=== PATIENT | female | born 1955 | race Caucasian/White ===

== ENCOUNTER 2017-02-13 07:00 | Inpatient (IN) ==
--- NOTE | 2017-02-22 10:48 | EKG Report ---
Test Performed on : 02/22/2017 10:40:37 AM Test Reason : PAT Blood Pressure : / mmHG Vent. Rate : 077 BPM Atrial Rate : 077 BPM P-R Int : 156 ms QRS Dur : 082 ms QT Int : 406 ms P-R-T Axes : 066 029 035 degrees QTc Int : 459 ms Normal sinus rhythm. Normal ECG When compared with ECG of 30-OCT-2016 07:29, Nonspecific T wave abnormality, improved in Inferior leads Nonspecific T wave abnormality no longer evident in Anterolateral leads Confirmed by Frantz JONES, Guru Davenport ([id number]) on 02/24/2017 9:12:41 AM
[2017-02-22 10:55] LABS: MANUAL DIFF NEEDED? NO
[2017-02-22 11:21] LABS: BASO% 0.3 % (0.0-0.8); EOS# 0.19 X1000 (0.0-0.7); EOS% 2.5 % (0.0-10.0); HEMATOCRIT 39.5 % (37.0-47.0); HEMOGLOBIN 12.3 g/dL (12.0-16.0); LYMPH# 2.44 X1000 (1.2-3.4); LYMPH% 32.4 % (20.5-51.1); MCH 26.6 PG (27-31); MCHC 31.1 g/dL (33-37); MCV 85.3 FL (81-99); MPV 9.6 FL (7.4-10.4); NEUT% 56.8 % (42.2-75.2); PLT 325 X1000 (130-400); RBC 4.63 XMIL (4.2-5.4)
[2017-02-22 11:41] LABS: AGAP 10; BUN 10 mg/dL (8-22); CALCIUM 9.2 mg/dL (8.8-10.2); CHLORIDE 102 mmol/L (98-107); COSMO 272; POTASSIUM 4.5 mmol/L (3.5-5.1); SODIUM 137 mmol/L (136-145); TCO2 25 mmol/L (25-35)
[2017-02-27] MEDS ORDERED: PEPCID ONE (11:04)
[2017-02-27] MEDS ORDERED: ENTEREG ONE (11:04)
[2017-02-27] MEDS ORDERED: REGLAN ONE (11:04)
[2017-02-27] MEDS ORDERED: LR 1,000 ML ONE (11:05)
[2017-02-27] MEDS ORDERED: INVANZ 1 GM/NS 0 GM/0 ML IVPB ONE (11:05)
[2017-02-27] MEDS ORDERED: INVANZ 1 GM/NS 1 GM/50 ML IVPB ONE (11:13)
[2017-02-27 13:37] LABS: URINE MICRO REVIEW NEEDED? NO; URINE SOURCE CATH
[2017-02-27 13:41] LABS: BILIRUBIN URINE NEGATIVE (NEGATIVE); BLOOD URINE NEGATIVE (NEGATIVE); COLOR YELLOW; GLUCOSE URINE NEGATIVE (NEGATIVE); LEUKOCYTES URINE NEGATIVE (NEGATIVE); NITRITE URINE NEGATIVE (NEGATIVE); PH URINE 7.5; PROTEIN URINE NEGATIVE (NEGATIVE); SP GRAVITY URINE 1.016; TURBIDITY URINE CLEAR (CLEAR); UROBILINOGEN URINE NORMAL (NORMAL)
[2017-02-27 13:42] LABS: UR EPITHELIAL CELLS <10 /HPF (<10); URINE BACTERIA NEGATIVE /HPF; URINE RBC <10 /HPF (<10); URINE WBC <10 /HPF (<10)
[2017-02-27] MEDS ORDERED: FENTANYL ONE (15:20)
[2017-02-27] MEDS ORDERED: DIPRIVAN 1% ONE (15:20)
[2017-02-27] MEDS: MORPHINE ONE ×4 (15:28→15:55)
[2017-02-27] MEDS ORDERED: NORCURON ONE (15:36)
[2017-02-27] MEDS ORDERED: ZOFRAN ONE ×2 (15:36→16:17)
[2017-02-27] MEDS ORDERED: XYLOCAINE-MPF 2% ONE (15:36)
[2017-02-27] MEDS ORDERED: QUELICIN (DOSE) ONE (15:37)
[2017-02-27] MEDS ORDERED: LR 2,000 ML ONE (15:37)
[2017-02-27] MEDS ORDERED: NS 1,000 ML ONE (15:45)
[2017-02-27] MEDS: NS 1,000 ML IV SCH (19:45)
[2017-02-27] MEDS: OFIRMEV 1000 MG/ISOTONIC SOLN 1,000 MG/100 ML BOTTLE IV SCH (19:45)
[2017-02-27] MEDS: PERIDEX MT SCH (22:32)
[2017-02-27] MEDS: LOVENOX SUBQ SCH (22:32)
[2017-02-28] MEDS: OFIRMEV 1000 MG/ISOTONIC SOLN 1,000 MG/100 ML BOTTLE IV SCH ×4 (00:31→18:42)
[2017-02-28] MEDS: ZOFRAN IV PRN ×3 (00:36→17:42)
--- NOTE | 2017-02-28 02:17 | OPERATIVE NOTE ---
PROCEDURE DATE: 02/27/2017 PROCEDURE PERFORMED: Closure of end colostomy. SURGEON: Flex Mauricio MD. PHYSICIAN ASSISTANT CERTIFIED: MARIANO Contreras. PREOPERATIVE DIAGNOSIS: History of sigmoid resection, with the construction of an end colostomy and Juan David's pouch. POSTOPERATIVE DIAGNOSIS: History of sigmoid resection, with the construction of an end colostomy and Juan David's pouch. INDICATION: A 61-year-old who is post resection of the sigmoid for a perforated diverticulitis. She had an end-colostomy constructed at that time. She now presents for reapproximation and reconstruction of her sigmoid colon. DESCRIPTION OF PROCEDURE: Satisfactory general endotracheal anesthesia was achieved. A 0 Prolene stitch was placed as a pursestring in the stoma to close it. We then prepped and draped the abdomen in sterile fashion. We made a midline incision through the old scar. We went through the midline fascia, removing the old #2 Prolene stitches. We took down the adhesions to the anterior abdominal wall. We then dissected around the colostomy as it entered the abdominal wall. After cleaning it off, we then amputated it with a LELO 80 blue cartridge. We placed the patient in Trendelenburg. A Bookwalter retractor was placed. We divided the adhesions and exposed the Juan David's stump. The proximal bowel came down to the Juan David's satisfactorily, without undue tension. We cleaned off the end of the bowel on each end, and then constructed the end-to-end anastomosis using 3-0 silks in a seromuscular fashion. On the posterior layer, we then amputated the staple lines, spread the lumen of the bowel with Kellys on both sides to stretch them, and used a 3-0 Polysorb running locking stitch posteriorly, changed to a Lorene stitch anteriorly, and then 3-0 silks in a Lembert fashion. Completed the 2 layer end-to-end approximation. We changed gloves at this point and rid ourselves of contaminated instruments. We irrigated out the pelvis. We then took the patient out of Trendelenburg, removed our laps. This took whatever tension was present off the anastomosis, and it was under no tension whatsoever. Hemostasis was satisfactory. We returned the small bowel to the pelvis, covered it with the omentum. We then closed the peritoneum with a 2-0 chromic running. The fascia was closed with running #2 Prolene running. We irrigated the subcutaneous tissue, and skin was closed with elmer. We then covered the staple line, and incised the mucocutaneous junction circumferentially of the stoma, and then dissected the stoma out of the abdominal wall. We closed the fascia with 0 Surgilon simple or [id number] stitches. We then irrigated the subcutaneous tissue of the stoma site, and then closed the skin transversely with elmer. Sterile dressings were applied. She tolerated it well, was sent to the recovery room in satisfactory condition. cc: Flex Mauricio MD
[2017-02-28] MEDS: NS 1,000 ML IV SCH ×2 (02:40→12:30)
[2017-02-28 06:06] LABS: HEMATOCRIT 33.9 % (37.0-47.0); HEMOGLOBIN 10.5 g/dL (12.0-16.0); MCH 27.3 PG (27-31); MCV 88.1 FL (81-99); MPV 9.7 FL (7.4-10.4); RBC 3.85 XMIL (4.2-5.4)
[2017-02-28 06:51] LABS: AGAP 11; BUN 12 mg/dL (8-22); CALCIUM 7.9 mg/dL (8.8-10.2); CHLORIDE 102 mmol/L (98-107); COSMO 275; POTASSIUM 3.9 mmol/L (3.5-5.1); SODIUM 138 mmol/L (136-145); TCO2 25 mmol/L (25-35)
[2017-02-28] MEDS ORDERED: ENTEREG PO SCH (09:00)
[2017-02-28] MEDS: PRILOSEC PO SCH (10:01)
[2017-02-28] MEDS: ENTEREG PO SCH ×2 (10:01→20:23)
[2017-02-28] MEDS: PERIDEX MT SCH ×2 (10:01→20:23)
[2017-02-28] MEDS: DILAUDID IV PRN ×2 (10:08→17:42)
[2017-02-28] MEDS: LOVENOX SUBQ SCH (20:23)
[2017-03-01] MEDS: OFIRMEV 1000 MG/ISOTONIC SOLN 1,000 MG/100 ML BOTTLE IV SCH ×5 (00:22→23:53)
[2017-03-01] MEDS: NS 1,000 ML IV SCH ×3 (00:22→11:35)
[2017-03-01] MEDS: ZOFRAN IV PRN ×3 (04:28→20:46)
[2017-03-01] MEDS: DILAUDID IV PRN ×3 (05:51→22:11)
[2017-03-01] MEDS ORDERED: MYLICON PO PRN (07:41)
[2017-03-01] MEDS: PERIDEX MT SCH ×3 (09:07→20:50)
[2017-03-01] MEDS: ENTEREG PO SCH ×2 (09:07→20:46)
[2017-03-01] MEDS: PRILOSEC PO SCH (09:07)
[2017-03-01] MEDS ORDERED: BENADRYL CREAM TOP PRN (20:00)
[2017-03-01] MEDS: LOVENOX SUBQ SCH (20:46)
[2017-03-02] MEDS: NS 1,000 ML IV SCH (02:33)
[2017-03-02] MEDS: OFIRMEV 1000 MG/ISOTONIC SOLN 1,000 MG/100 ML BOTTLE IV SCH (05:03)
[2017-03-02 05:41] LABS: MANUAL DIFF NEEDED? NO
[2017-03-02 07:12] LABS: BASO% 0.3 % (0.0-0.8); HEMOGLOBIN 10.4 g/dL (12.0-16.0); IMM GRAN# 0.03 X1000 (0.0-0.04); IMM GRAN% 0.3 % (0.0-0.5); LYMPH# 1.53 X1000 (1.2-3.4); LYMPH% 15.4 % (20.5-51.1); MCH 26.9 PG (27-31); MCHC 31.5 g/dL (33-37); MCV 85.3 FL (81-99); MONO# 0.76 X1000 (0.11-0.59); MONO% 7.6 % (1.7-9.3); NEUT% 73.4 % (42.2-75.2); PLT 288 X1000 (130-400); RBC 3.87 XMIL (4.2-5.4)
[2017-03-02] MEDS ORDERED: ULTRAM PO PRN (08:29)
[2017-03-02] MEDS: PRILOSEC PO SCH (09:15)
[2017-03-02] MEDS: PERIDEX MT SCH ×2 (09:40→20:34)
[2017-03-02] MEDS: ENTEREG PO SCH (10:21)
[2017-03-02] MEDS: LOVENOX SUBQ SCH (20:33)
[2017-03-03] MEDS ORDERED: SOLU-MEDROL 0 MG in NS 100 ML IV ONE (07:58)
[2017-03-03] MEDS ORDERED: NS IV ONE (08:00)
[2017-03-03] MEDS ORDERED: SOLU MEDROL IV ONE (08:00)
[2017-03-03] MEDS: PRILOSEC PO SCH (10:00)
[2017-03-03] MEDS: PERIDEX MT SCH (10:00)
[2017-03-03 14:44] VITALS: BP 138/67
--- NOTE | 2017-03-15 15:54 | DISCHARGE SUMMARY ---
ADMISSION DATE: 02/27/2017 DISCHARGE DATE: 03/03/2017 DISCHARGE DIAGNOSIS: History of colon resection from perforated diverticulitis now with a colostomy. PRIMARY PROCEDURE: Closure of the colostomy. HOSPITAL COURSE: This 61-year-old was admitted for closure of her colostomy. After admission on the she underwent that procedure. Postoperatively she did generally well. We decreased her IV rate down to 80 mL/hour on the first postoperative day and got her out of bed. We removed her Barfield on the second postoperative day and cut her IV rate further down to 60. We gave her Mylicon because of her gas. We stopped Entereg on the third postoperative day and started her on clear liquids. By the fourth postoperative day, 03/03 she was passing bowel movements through her rectum and tolerating p.o. intake. Her wounds were fine. It was felt she could be discharged home. She will return to the office in a week for followup. cc: Flex Mauricio MD MTDD
== END 2017-03-03 16:39 | disposition home or self-care (01) ==
LOC: SURHOLD 02-27 10:54 → 4N 02-27 14:16
PROVIDERS: ADMIT Surgery; ATTEND Surgery